=== PATIENT | female | born 1985 ===

== ENCOUNTER 2020-04-07 06:10 | Emergency (ER) | payer SELFPAY ==
[~2020-04-07] VITALS: Ht 167.6 cm; Wt 59.0 kg
--- NOTE | 2020-04-07 06:22 | Emergency Room Report ---
History of Present Illness General Chief Complaint: Behavioral Complaint Source: Patient, Law Enforcement Present Illness HPI Disclaimer: Please note that this report is being documented using My[employer] technology. This can lead to erroneous entry secondary to incorrect interpretation by the dictating instrument. HPI: 35-year-old female presents for evaluation of bizarre behavior. She arrives in custody of [employer] and is being placed on 5150 hold for danger to self. Reportedly, the patient told [place] police that she was hearing voices. Unknown what medications she may be taking or such that she may have used today. She is not providing any history. She is switching between [place]ic and [place] Island[place] but appears to comprehend and speak fluent [place]ic. She is requesting to speak to her binding dyer not answering any medical questions. 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 EOMI. Resp: Normal work of breathing Skin: Intact. No abrasions, laceration or rash over the exposed skin MSK: Normal tone and bulk. Moving all extremities. No obvious deformity. Neuro: Awake and alert. Patient refusing to answer questions. Does not appear to be responding to internal stimuli. Medical Decision Making Diagnostic Impression: Primary Impression: UTI (urinary tract infection) ER Course This a 35-year-old female presenting with [employer] on 5150 hold for danger to self after being found wandering through traffic. Differential includes was not limited to psychiatric disorder, alcohol abuse, substance abuse, electrolyte abnormality. She does not appear to be any distress but is refusing to answer questions. Will obtain broad screening labs arrange for psychiatric evaluation. Laboratory Tests Test 04/07/20 07:20 04/07/20 08:20 White Blood Count 10.5 K/UL (4.8-10.8) Red Blood Count 4.30 M/UL (4.20-5.40) Hemoglobin 13.2 G/DL (12.0-16.0) Hematocrit 41.7 % (37.0-47.0) Mean Corpuscular Volume 97 FL (80-99) Mean Corpuscular Hemoglobin 30.7 PG (27.0-31.0) Mean Corpuscular Hemoglobin Concent 31.6 G/DL (32.0-36.0) L Red Cell Distribution Width 13.9 % (11.6-14.8) Platelet Count 218 K/UL (150-450) Mean Platelet Volume 7.6 FL (6.5-10.1) Neutrophils (%) (Auto) 58.2 % (45.0-75.0) Lymphocytes (%) (Auto) 29.5 % (20.0-45.0) Monocytes (%) (Auto) 8.9 % (1.0-10.0) Eosinophils (%) (Auto) 2.4 % (0.0-3.0) Basophils (%) (Auto) 1.0 % (0.0-2.0) Sodium Level 138 MMOL/L (136-145) Potassium Level 3.8 MMOL/L (3.5-5.1) Chloride Level 105 MMOL/L (98-107) Carbon Dioxide Level 23 MMOL/L (21-32) Anion Gap 10 mmol/L (5-15) Blood Urea Nitrogen 22 mg/dL (7-18) H Creatinine 0.8 MG/DL (0.55-1.30) Estimated Glomerular Filtration Rate > 60 mL/min (>60) Glucose Level 88 MG/DL (74-106) Calcium Level 8.4 MG/DL (8.5-10.1) L Total Bilirubin 0.2 MG/DL (0.2-1.0) Aspartate Amino Transferase (AST) 30 U/L (15-37) Alanine Aminotransferase (ALT) 40 U/L (12-78) Alkaline Phosphatase 53 U/L (46-116) Total Protein 7.4 G/DL (6.4-8.2) Albumin 3.5 G/DL (3.4-5.0) Globulin 3.9 g/dL Salicylates Level 4.0 ug/mL (2.8-20) Acetaminophen Level < 3 MCG/ML (10-30) L Serum Alcohol < 2 mg/dL Urine Color Pale yellow Urine Appearance Clear Urine pH 5 (4.5-8.0) Urine Specific [place] 1.025 (1.005-1.035) Urine Protein Negative (NEGATIVE) Urine Glucose (UA) Negative (NEGATIVE) Urine Ketones Negative (NEGATIVE) Urine Blood 1+ (NEGATIVE) H Urine Nitrite Positive (NEGATIVE) H Urine Bilirubin Negative (NEGATIVE) Urine Urobilinogen Normal MG/DL (0.0-1.0) Urine Leukocyte Esterase 1+ (NEGATIVE) H Urine RBC 0-2 /HPF (0 - 2) Urine WBC 0-2 /HPF (0 - 2) Urine Squamous Epithelial Cells Few /LPF (NONE/OCC) Urine Bacteria Moderate /HPF (NONE) H Urine HCG, Qualitative Negative (NEGATIVE) Urine Opiates Screen Negative (NEGATIVE) Urine Barbiturates Screen Negative (NEGATIVE) Phencyclidine (PCP) Screen Positive (NEGATIVE) H Urine Amphetamines Screen Positive (NEGATIVE) H Urine Benzodiazepines Screen Negative (NEGATIVE) Urine Cocaine Screen Negative (NEGATIVE) Urine Marijuana (THC) Screen Positive (NEGATIVE) H Reevaluation Time: 09:07 Last Vital Signs Date Time Temp Pulse Resp B/P (MAP) Pulse Ox O2 Delivery O2 Flow Rate FiO2 04/07/20 06:10 98.1 92 20 115/75 (88) 97 Room Air Reevaluation Impression Labs show evidence of an acute urinary tract infection patient was treated with ceftriaxone will be discharged on Keflex. Toxicology report positive for PCP, amphetamines, and marijuana. Patient received Haldol and Ativan for sedation given her destructive behavior and try to herself and our staff. She is now resting comfortably. She is medically cleared for psychiatric evaluation. She remains on 5150 hold. Disposition: SHORT-TERM HOSP Condition: Serious Scripts Cephalexin* (KEFLEX*) 500 Mg Capsule 500 MG ORAL EVERY 12 HOURS, #14 CAP 0 Refills Prov: Mason Ventura MD 04/07/20 Mason Ventura MD Apr 07, 2020 06:22
[2020-04-07] MEDS ORDERED: Haloperidol 5mg/ml Inj IM ONE (06:30)
[2020-04-07] MEDS ORDERED: LORazepam Inj 2mg/ml 1ml IM ONE (06:30)
[2020-04-07 07:34] LABS: EOSINOPHILS % (AUTO) 2.4 % (0.0-3.0); HEMATOCRIT 41.7 % (37.0-47.0); HEMOGLOBIN 13.2 G/DL (12.0-16.0); LYMPHOCYTES % (AUTO) 29.5 % (20.0-45.0); MEAN CORPUSCULAR VOLUME 97 FL (80-99); MONOCYTES % (AUTO) 8.9 % (1.0-10.0); NEUTROPHILS % (AUTO) 58.2 % (45.0-75.0); PLATELET COUNT 218 K/UL (150-450); RED CELL DISTRIBUTION WIDTH 13.9 % (11.6-14.8); WHITE BLOOD COUNT 10.5 K/UL (4.8-10.8)
[2020-04-07 08:08] LABS: ALANINE AMINOTRANSFERASE 40 U/L (12-78); ALBUMIN 3.5 G/DL (3.4-5.0); ALKALINE PHOSPHATASE 53 U/L (46-116); ANION GAP 10 mmol/L (5-15); BILIRUBIN,TOTAL 0.2 MG/DL (0.2-1.0); CALCIUM 8.4 MG/DL (8.5-10.1); CARBON DIOXIDE 23 MMOL/L (21-32); CHLORIDE 105 MMOL/L (98-107); POTASSIUM 3.8 MMOL/L (3.5-5.1); SODIUM 138 MMOL/L (136-145)
[2020-04-07 08:19] LABS: ASPARTATE AMINO TRANSFERASE 30 U/L (15-37); BLOOD UREA NITROGEN 22 mg/dL (7-18); CREATININE 0.8 MG/DL (0.55-1.30)
[2020-04-07 08:32] LABS: APPEARANCE,URINE CLEAR; BILIRUBIN, URINE NEGATIVE (NEGATIVE); COLOR,URINE PALE YELLOW; GLUCOSE, URINE (UA) NEGATIVE (NEGATIVE); KETONES,URINE NEGATIVE (NEGATIVE); LEUKOCYTE ESTERASE ,URINE 1+ (NEGATIVE); NITRITE,URINE POSITIVE (NEGATIVE); PH,URINE 5 (4.5-8.0); PROTEIN,URINE NEGATIVE (NEGATIVE); UROBILINOGEN,URINE NORMAL MG/DL (0.0-1.0)
[2020-04-07] MEDS ORDERED: BACTRIM DS TAB1 EAC1 ORAL (09:04)
[2020-04-07] MEDS ORDERED: CEPHALEXIN500 MG ORAL (09:05)
[2020-04-07] MEDS ORDERED: cefTRIAXone 1 GM in NS 55 ML IVPB ONE (09:15)
[2020-04-07 09:45] VITALS: BP 121/76
[2020-04-07 12:00] VITALS: BP 118/73
[2020-04-07 16:23] VITALS: BP 124/76
[2020-04-07 18:08] VITALS: BP 119/80
[2020-04-07 20:40] VITALS: BP 125/72
[2020-04-07 22:37] VITALS: BP 120/77
[2020-04-08 00:45] VITALS: BP 105/69
== END 2020-04-08 00:45 | disposition short-term general hospital (02) ==
LOC: EDBD 06:10 → EMR 07:25
DX: N39.0 Urinary tract infection, site not specified (principal); F15.10 Other stimulant abuse, uncomplicated; F12.10 Cannabis abuse, uncomplicated; F16.10 Hallucinogen abuse, uncomplicated; R46.2 Strange and inexplicable behavior
CPT/HCPCS: 36415; 80053; 80307; 81003; 81025; 85025; 87086; 87181; 96365; 96372; 99285; G0480; J0696; J1630; U0002